=== PATIENT | female | born 1960 | race Caucasian/White ===

== ENCOUNTER 2021-08-22 08:28 | Outpatient (CLI) | payer MEDICARE | END 2021-08-22 08:29 | disposition home or self-care (01) | LOC: BICMAMMO 08:28 | PROVIDERS: ATTEND Family Medicine | DX: Z12.31 Encounter for screening mammogram for malignant neoplasm of breast (principal) | CPT/HCPCS: 77063; 77067 ==

== ENCOUNTER 2022-05-07 10:15 | Outpatient (CLI) | payer OTHER | END 2022-05-07 10:16 | disposition home or self-care (01) | LOC: BICMRI 10:15 | PROVIDERS: ATTEND Student in an Organized Health Care Education/Training Program | DX: M51.16 Intervertebral disc disorders with radiculopathy, lumbar region (principal); M48.061 Spinal stenosis, lumbar region without neurogenic claudication | CPT/HCPCS: 72148 ==

== ENCOUNTER 2022-08-21 10:20 | Outpatient (CLI) | payer OTHER ==
[2022-08-21 12:45] LABS: Hemoglobin 13.7 g/dL (12.0-15.5); Mean Corpuscular HGB CONC 33.3 g/dL (32.0-36.0); Mean Corpuscular Hemoglobin 31.1 pg (27.0-33.0); Mean Corpuscular Volume 93.2 fl (81.6-98.3); Mean Platelet Volume 11.1 fl (7.4-10.4); Platelet Count 211 10x3/uL (150-450); RBC Distribution Width 13.1 % (11.5-14.5); Red Blood Cell (RBC) Count 4.41 10x6/uL (3.90-5.03); White Blood Cell (WBC) Count 5.2 10x3/uL (3.5-10.5)
[2022-08-21 13:07] LABS: Anion Gap 15 mmol/L (10-20); BUN (Urea Nitrogen) 18 mg/dL (9.8-20.1); Calc. Creatinine Clearance 0 mL/min (70-130); Calcium 9.1 mg/dL (7.8-10.44); Carbon Dioxide 26 mmol/L (23-31); Chloride 104 mmol/L (98-107); Estimated GFR 97; Glucose 131 mg/dL (80-115); Potassium 3.6 mmol/L (3.5-5.1); Sodium 141 mmol/L (136-145)
== END 2022-08-21 10:21 | disposition home or self-care (01) ==
LOC: LABBT 10:20
PROVIDERS: ATTEND Neurological Surgery
DX: Z01.818 Encounter for other preprocedural examination (principal); M48.062 Spinal stenosis, lumbar region with neurogenic claudication; Z20.822 Contact with and (suspected) exposure to COVID-19
CPT/HCPCS: 80048; 85027; 87811; 93005; 93010

== ENCOUNTER 2022-08-26 07:40 | Observation (INO) | payer OTHER ==
[2022-08-22 12:37] VITALS: BMI 39.0
[2022-08-26] MEDS ORDERED: Midazolam HCl 2 mg/2 ml Vial ONE (10:49)
[2022-08-26] MEDS ORDERED: SUGAMMADEX SODIUM 200 MG/2 ML VIAL ONE (10:54)
[2022-08-26] MEDS ORDERED: Ketamine 50 MG/ML (10ML VIAL) ONE (10:54)
[2022-08-26] MEDS ORDERED: fentaNYL Citrate/PF 100 MCG/2 ML SYRINGE ONE ×2 (10:54→12:40)
[2022-08-26] MEDS ORDERED: Clindamycin/D5W 900 mg/50 ml Premix Bag ONE (10:55)
[2022-08-26] MEDS ORDERED: PHENYLEPHRINE-NS 100 MCG/ML 10 ML SYRINGE ONE (11:09)
[2022-08-26] MEDS ORDERED: Glycopyrrolate 0.2 MG/ML 5 ML SYRINGE ONE (11:09)
[2022-08-26] MEDS ORDERED: Rocuronium Bromide 10 MG/ML (10ML VIAL) ONE (11:09)
[2022-08-26] MEDS ORDERED: Ondansetron PF 4 MG/2 ML Vial ONE (11:09)
[2022-08-26] MEDS ORDERED: NEOSTIGMINE 3 MG/3 ML SYR 3 MG/3 ML SYRINGE ONE (11:09)
[2022-08-26] MEDS ORDERED: Dexamethasone 20 MG/5 ML VIAL ONE (11:09)
[2022-08-26] MEDS ORDERED: PROPOFOL 200 MG/20 ML VIAL ONE (11:09)
[2022-08-26] MEDS ORDERED: Acetaminophen/Codeine 30-300mg Tablet PO PRN (12:22)
[2022-08-26] MEDS ORDERED: diphenhydrAMINE 25 MG CAP PO PRN (12:22)
[2022-08-26] MEDS ORDERED: Cyclobenzaprine 10 MG TAB PO PRN (12:22)
[2022-08-26] MEDS ORDERED: Ondansetron PF 4 MG/2 ML Vial IVP PRN (12:22)
[2022-08-26] MEDS ORDERED: Promethazine 25 MG TAB PO PRN (12:22)
[2022-08-26] MEDS ORDERED: Morphine 2 MG/ML VIAL SLOW IVP PRN (12:22)
[2022-08-26] MEDS ORDERED: traMADol HCl 50 MG TAB PO PRN (12:22)
[2022-08-26] MEDS ORDERED: Mag-Al 1200 mg/1200 mg/30 ML UDCUP PO PRN (12:22)
[2022-08-26] MEDS ORDERED: Milk Of Magnesia 30 ML UDCUP PO PRN (12:22)
[2022-08-26] MEDS ORDERED: Ketorolac Tromethamine 30 MG/ML VIAL ONE (12:41)
[2022-08-26] MEDS: Sodium Chloride 0.9% 1,000 ML IV SCH (16:13)
[2022-08-26] MEDS: Clindamycin/D5W 900 MG in Premix Bag 1 BAG IVPB SCH (21:48)
[2022-08-26] MEDS: Acetaminophen/Codeine 30-300mg Tablet PO PRN (21:49)
[2022-08-27] MEDS: Sodium Chloride 0.9% 1,000 ML IV SCH (02:44)
[2022-08-27] MEDS: Acetaminophen/Codeine 30-300mg Tablet PO PRN (03:41)
[2022-08-27] MEDS: Clindamycin/D5W 900 MG in Premix Bag 1 BAG IVPB SCH (03:45)
[2022-08-27 04:03] VITALS: TEMP 98.1
[2022-08-27] MEDS ORDERED: Hydrochlorothiazide 25 MG TAB PO SCH (09:00)
[2022-08-27] MEDS ORDERED: Lisinopril 5 MG TAB PO SCH (09:00)
[2022-08-27 11:56] VITALS: BP 132/80
== END 2022-08-27 12:01 | disposition home or self-care (01) ==
LOC: SDC 07:40 → SURG A 14:36
PROVIDERS: ADMIT Neurological Surgery; ATTEND Neurological Surgery
PROC: 0SG0071 Fusion of Lumbar Vertebral Joint with Autologous Tissue Substitute, Posterior Approach, Posterior Column, Open Approach (ICD-10-PCS; principal; 2022-08-26)
DX: M48.062 Spinal stenosis, lumbar region with neurogenic claudication (principal); M51.36 Other intervertebral disc degeneration, lumbar region; M51.26 Other intervertebral disc displacement, lumbar region; M47.816 Spondylosis without myelopathy or radiculopathy, lumbar region; I10 Essential (primary) hypertension; E78.5 Hyperlipidemia, unspecified; Z79.899 Other long term (current) drug therapy; Z88.0 Allergy status to penicillin; Z91.040 Latex allergy status
CPT/HCPCS: 20930; 20936; 22612; 76000; 97116; C1713; C1768; J1100; J1885; J2250; J2405; J2704; J3370; J3490

== ENCOUNTER 2022-09-19 09:20 | Outpatient (CLI) | payer OTHER | END 2022-09-19 09:21 | disposition home or self-care (01) | LOC: BICMAMMO 09:20 | PROVIDERS: ATTEND Student in an Organized Health Care Education/Training Program | DX: Z13.820 Encounter for screening for osteoporosis (principal); Z78.0 Asymptomatic menopausal state | CPT/HCPCS: 77080 ==

== ENCOUNTER 2022-10-21 10:14 | Outpatient (CLI) | payer OTHER | END 2022-10-21 10:15 | disposition home or self-care (01) | LOC: TBSIIMAG 10:14 | PROVIDERS: ATTEND Neurological Surgery | DX: M25.78 Osteophyte, vertebrae (principal); M54.16 Radiculopathy, lumbar region | CPT/HCPCS: 72100 ==

== ENCOUNTER 2024-05-04 09:43 | Outpatient (CLI) | payer OTHER | END 2024-05-04 09:44 | disposition home or self-care (01) | LOC: BICMAMMO 09:43 | PROVIDERS: ATTEND Student in an Organized Health Care Education/Training Program | DX: Z12.31 Encounter for screening mammogram for malignant neoplasm of breast (principal) | CPT/HCPCS: 77063; 77067 ==

== ENCOUNTER 2025-06-10 14:47 | Outpatient (CLI) | payer MEDICARE | END 2025-06-10 14:48 | disposition home or self-care (01) | LOC: BICMAMMO 14:47 | PROVIDERS: ATTEND Family Medicine | DX: Z12.31 Encounter for screening mammogram for malignant neoplasm of breast (principal) | CPT/HCPCS: 77063; 77067 ==